=== PATIENT | female | born 1980 | race Caucasian/White ===

== ENCOUNTER 2021-10-17 06:50 | Emergency (ER) | payer OTHER ==
[~2021-10-17] VITALS: Ht 160 cm; Wt 84.8 kg
[2021-10-17] MEDS ORDERED: Morphine 4mg INJECTION 4 MG/ML INJ IV STA (06:55)
[2021-10-17] MEDS ORDERED: SODIUM CHLORIDE 0.9% 1000ML 1,000 ML IV STA (06:55)
[2021-10-17] MEDS ORDERED: ONDANSETRON HCL INJ 2MG/ML 2ML 2 MG/ML VIAL IV STA (06:55)
[2021-10-17 07:39] LABS: BASOPHILS % 0.4 % (0.0-1.0); EOSINOPHILS # (AUTO) 0.6 (0.0-0.4); EOSINOPHILS % 8.1 % (0.0-6.0); HEMATOCRIT 44.3 % (34.2-44.1); HEMOGLOBIN 14.9 g/dL (12.0-16.0); LYMPHOCYTES # (AUTO) 1.7 (1.0-3.2); LYMPHOCYTES % 21.9 % (18.0-39.1); MEAN CORPUSCULAR HEMOGLOBIN 33.5 pg (28-32); MEAN CORPUSCULAR HGB CONC 33.6 g/dL (31-35); MEAN CORPUSCULAR VOLUME 99.6 fL (81-99); MONOCYTES # (AUTO) 0.7 (0.2-0.8); MONOCYTES % 9.8 % (4.4-11.3); NEUTROPHILS # (AUTO) 4.5 (2.1-6.9); NEUTROPHILS % 59.7 % (38.7-80.0); PLATELET COUNT 224 x10e3/uL (140-360); RED BLOOD COUNT 4.45 x10e6/uL (3.6-5.1)
[2021-10-17 07:46] LABS: CLARITY,URINE CLOUDY (CLEAR); COLOR,URINE YELLOW (YELLOW); KETONES,URINE NEGATIVE (NEGATIVE); LEUKOCYTE ESTERASE ,URINE NEGATIVE (NEGATIVE); NITRITE,URINE NEGATIVE (NEGATIVE); PROTEIN,URINE DIPSTICK NEGATIVE (NEGATIVE); URINE UROBILINOGEN 0.2 mg/dL (0.2 - 1)
[2021-10-17 07:56] LABS: ALBUMIN 3.5 g/dL (3.5-5.0); CALCIUM 8.7 mg/dL (8.4-10.2); CREATININE, SERUM 0.79 mg/dL (0.57-1.11)
[2021-10-17] MEDS ORDERED: IOPAMIDOL 370 MG/ML 100 ML INFUS..BTL INJ ONE (08:16)
[2021-10-17 08:37] LABS: WBC,URINE (MAN) 0-5 /HPF (0-5)
[2021-10-17 08:39] LABS: BACTERIA,URINE FEW /HPF; CALCIUM OXALATE CRYSTALS,UR MODERATE (FEW); EPITHELIAL CELLS,URINE FEW /LPF
[2021-10-17] MEDS ORDERED: DICYCLOMINE HCL20 MG PO ×2 (09:39→11:11)
[2021-10-17] MEDS ORDERED: ULTRAM 50MG50 MG PO ×2 (09:39→11:11)
[2021-10-17 09:52] VITALS: BP 131/73
== END 2021-10-17 09:50 | disposition home or self-care (01) ==
LOC: ER 06:56
DX: N94.6 Dysmenorrhea, unspecified (principal); N83.202 Unspecified ovarian cyst, left side; R10.31 Right lower quadrant pain; K76.0 Fatty (change of) liver, not elsewhere classified; K92.89 Other specified diseases of the digestive system
CPT/HCPCS: 36415; 74177; 76830; 76856; 80053; 81001; 81025; 85025; 87086; 99283; J2270; J2405; J7030; Q9967